=== PATIENT | female | born 1990 | race Caucasian/White ===

== ENCOUNTER 2016-12-09 07:25 | Emergency (ER) | payer MEDICAID, OTHER ==
--- NOTE | 2016-12-09 07:58 | ER Document Report ---
ED GI/ - General Mode of Arrival: Ambulatory Information source: Patient TRAVEL OUTSIDE OF THE U.S. IN LAST 30 DAYS: No - HPI Patient complains to provider of: Pelvic pain, - 10 weeks, Vaginal bleeding Onset: Other - Refer to HPI notes Vaginal bleeding (Compared to normal period): Bright red. denies: Passing clots Menstrual period history: : 3 Para: 2 Abortions: 0 Similar symptoms previously: No Recently seen / treated by doctor: Yes <ANDREW URIARTE - Last Filed: 12/09/16 08:23> <IBRAHIMA SUMMERS - Last Filed: 12/09/16 11:26> - General Chief Complaint: Vaginal Bleeding Stated Complaint: VAGINAL BLEEDING/10 WEEKS Time Seen by Provider: 12/09/16 07:45 Notes: Patient is a 26-year-old female presenting to the emergency department for vaginal bleeding. Patient is 10 weeks and states that the bleeding started when she woke up at 6:00 this morning. Patient states it was bright red blood with no clots. Patient also complains of some pelvic cramping last night and states she has more of an achy feeling to that area this morning with no cramping. Patient states that [email or web address]. Patient's blood type is A-; patient states she has not received any rhogam shots yet. Patient has a history of hypothyroidism and is taking synthroid. Patient has a history of . Patient has no known drug allergies. (ANDREW URIARTE) - Related Data Allergies/Adverse Reactions: No Known Allergies Allergy (Verified 12/09/16 07:33) Past Medical History - General Information source: Patient - Social History Smoking Status: Never Smoker Cigarette use (# per day): No Chew tobacco use (# tins/day): No Frequency of alcohol use: None Drug Abuse: None Family History: None Patient has suicidal ideation: No Patient has homicidal ideation: No Endocrine Medical History: Reports: Hx Hypothyroidism Psychiatric Medical History: Reports: Hx Bipolar Disorder Surgical Hx: Negative - Immunizations Immunizations up to date: Yes Hx Diphtheria, Pertussis, Tetanus Vaccination: Yes - unknown <ANDREW URIARTE - Last Filed: 12/09/16 08:23> Review of Systems - Review of Systems Constitutional: No symptoms reported EENT: No symptoms reported Cardiovascular: No symptoms reported Respiratory: No symptoms reported Gastrointestinal: See HPI Genitourinary: No symptoms reported Female Genitourinary: See HPI, , Vaginal bleeding Musculoskeletal: No symptoms reported Skin: No symptoms reported Hematologic/Lymphatic: No symptoms reported Neurological/Psychological: No symptoms reported -: Yes All other systems reviewed and negative <ANDREW URIARTE - Last Filed: 12/09/16 08:23> Physical Exam - Vital signs Interpretation: Normal - General General appearance: Appears well, Alert In distress: Mild - HEENT Head: Normocephalic, Atraumatic Eyes: Normal Pupils: PERRL Mucous membranes: Moist - Respiratory Respiratory status: No respiratory distress Chest status: Nontender Breath sounds: Normal Chest palpation: Normal - Cardiovascular Rhythm: Regular Heart sounds: Normal auscultation Murmur: No - Abdominal Inspection: Gravid female Distension: No distension Bowel sounds: Normal Tenderness: Nontender Organomegaly: No organomegaly - Back Back: Normal, Nontender - Extremities General upper extremity: Normal inspection, Normal ROM, Normal strength General lower extremity: Normal inspection, Normal ROM, Normal strength - Neurological Neuro grossly intact: Yes Cognition: Normal Orientation: AAOx4 [place] Coma Scale Eye Opening: Spontaneous Tami Coma Scale Verbal: Oriented [place] Coma Scale Motor: Obeys Commands [place] Coma Scale Total: 15 Speech: Normal - Psychological Associated symptoms: Normal affect, Normal mood - Skin Skin Temperature: Warm Skin Moisture: Dry <KIMSTEPHYANDREW - Last Filed: 12/09/16 08:23> <IBRAHIMA SUMMERS - Last Filed: 12/09/16 11:26> - Vital signs Vitals: Temp Pulse Resp BP Pulse Ox 97.5 F 70 16 118/57 L 99 12/09/16 07:30 12/09/16 07:30 12/09/16 07:30 12/09/16 07:30 12/09/16 07:30 Course - Laboratory Result Diagrams: 12/09/16 08:45 <IBRAHIMA SUMMERS - Last Filed: 12/09/16 11:26> - Vital Signs Vital signs: Temp Pulse Resp BP Pulse Ox 97.8 F 60 16 109/67 100 12/09/16 11:18 12/09/16 11:18 12/09/16 11:18 12/09/16 11:18 12/09/16 11:18 - Laboratory Laboratory results interpreted by me: 12/09/16 09:19 Urine Blood LARGE H Ur Leukocyte Esterase TRACE H Discharge <ANDREW URIARTE - Last Filed: 12/09/16 08:23> <IBRAHIMA SUMMERS - Last Filed: 12/09/16 11:26> - Discharge Clinical Impression: Subchorionic hemorrhage in first trimester, Need for rhogam due to Rh negative mother Condition: Stable Disposition: HOME, SELF-CARE Additional Instructions: Bleeding During Early : You have been evaluated for passing blood while . While we take this symptom very seriously, most women with your degree of bleeding will go on to have a perfectly normal baby. At this time, there is no indication that a miscarriage will occur. (A miscarriage occurs when the fetus is abnormal. There is no medicine or treatment to prevent it.) A more serious cause of bleeding is tubal . An ultrasound can show whether the is in the uterus or in the tube. Sometimes in early , no fetus is seen. In this case, careful follow-up, including repeat blood tests and repeat ultrasound, is necessary. You should rest in bed until the symptoms have resolved. Do not douche or have sex for at least a week, or until OK'd by the doctor. Don't use tampons. Call the doctor or return for re-examination if there is an increase in bleeding or cramping, extreme weakness, fainting, new abdominal pain, fever, or passage of tissue. FOLLOW UP WITH YOUR OB-REEL OPERATOR DOCTOR TOMORROW FOR RECHECK. RETURN TO THE EMERGENCY ROOM IF ANY NEW OR WORSENING SYMPTOMS. Forms: Release from PE and Sports Referrals: [facility] [Provider Group] - 12/10/16 Scribe Attestation: 12/09/16 10:51 I personally performed the services described in the documentation, reviewed and edited the documentation which was dictated to the scribe in my presence, and it accurately records my words and actions. (IBRAHIMA SUMMERS) Scribe Documentation - Scribe Written by Noy:: Noy Thompson, 12/09/16 8:22 acting as scribe for :: Dewey <ANDREW URIARTE - Last Filed: 12/09/16 08:23>
[2016-12-09 09:02] LABS: ABSOLUTE EOSINOPHILS # (AUTO) 0.1 10^3/uL (0.0-0.6); ABSOLUTE LYMPHOCYTES (AUTO) 1.6 10^3/uL (0.5-4.7); ABSOLUTE MONOCYTES (AUTO) 0.4 10^3/uL (0.1-1.4); ABSOLUTE NEUT (AUTO) 5.5 10^3/uL (1.7-8.2); BASOPHILS % (AUTO) 0.3 % (0-2); EOSINOPHILS % (AUTO) 0.9 % (0-6); HEMATOCRIT 36.6 % (36.0-47.0); HEMOGLOBIN 12.5 g/dL (12.0-15.5); HGB HCT DIFFERENCE 0.9; LYMPHOCYTES % (AUTO) 21.2 % (13-45); MEAN CORPUSCULAR HEMOGLOBIN 31.2 pg (27.0-33.4); MEAN CORPUSCULAR HGB CONC 34.1 g/dL (32.0-36.0); MEAN CORPUSCULAR VOLUME 91 fl (80-97); MONOCYTES % (AUTO) 5.6 % (3-13); RED BLOOD COUNT 4.01 10^6/uL (3.72-5.28); RED CELL DISTRIBUTION WIDTH 12.5 % (11.5-14.0); WHITE BLOOD COUNT 7.6 10^3/uL (4.0-10.5)
[2016-12-09 09:44] LABS: APPEARANCE,URINE SLIGHTLY-CLOUDY; BILIRUBIN,URINE NEGATIVE (NEGATIVE); GLUCOSE, URINE NEGATIVE (NEGATIVE); KETONES,URINE NEGATIVE (NEGATIVE); LEUKOCYTE ESTERASE,URINE TRACE (NEGATIVE); NITRITE,URINE NEGATIVE (NEGATIVE); PROTEIN,URINE NEGATIVE (NEGATIVE); URINE SPECIFIC GRAVITY 1.004; UROBILINOGEN,URINE NEGATIVE mg/dL (<2.0)
--- NOTE | 2016-12-09 10:34 | RADIOLOGY REPORT (SQ) ---
EXAM DESCRIPTION: U/S OB TRANSVAGINAL W/O DOP COMPLETED DATE/TIME: 12/09/2016 10:16 am REASON FOR STUDY: 10wks, BRB vag bleeding w/ cramps COMPARISON: No previous this TECHNIQUE: Endovaginal static and realtime grayscale images acquired of the pelvis. Additional selec eloy spectral and color Doppler images recorded. All images stored on PACs. bHCG: Not available LIMITATIONS: None. FINDINGS: FETUS: Living intrauterine . EGA: 10 weeks 2 days MOY: 07/05/2017 FHR: 175 beats per minute. SUBCHORIONIC BLEED: Yes SIZE OF BLEED: 2.6 x 0.6 cm subchorionic hemorrhage along the lower uterine segment. Cervix internal os is closed. UTERUS: No masses. No anomalies. Uterus is 12.6 x 8 x 7 cm in size. CERVICAL LENGTH: 3 cm Closed. RIGHT ADNEXA: Normal ovary with normal vascular flow. Right ovary 3.3 x 1.6 x 1.9 cm No adnexal free fluid. No adnexal masses. LEFT ADNEXA: Normal ovary with normal vascular flow. Left ovary 3.9 x 2.2 x 1.9 cm in size. No adnexal free fluid. No adnexal masses. FREE FLUID: None. OTHER: No other significant finding. IMPRESSION: LIVING INTRAUTERINE . EGA 10 weeks 2 days Subchorionic hemorrhage present. Trimester of : First - 0 to 13 weeks. TECHNICAL DOCUMENTATION: JOB ID: [id number] [place] [employer]- All Rights Reserved
[2016-12-09 11:19] VITALS: BP 109/67
[2016-12-09] MEDS ORDERED: LIDOCAINE 1% INJ-PF (10 MG/ML) 30 ML SDV ONE (12:46)
== END 2016-12-09 11:28 | disposition home or self-care (01) ==
LOC: ER 07:25
DX: O20.8 Other hemorrhage in early pregnancy (principal); O36.0910 Maternal care for other rhesus isoimmunization, first trimester, not applicable or unspecified; O99.281 Endocrine, nutritional and metabolic diseases complicating pregnancy, first trimester; E03.9 Hypothyroidism, unspecified; Z79.899 Other long term (current) drug therapy; Z3A.10 10 weeks gestation of pregnancy
CPT/HCPCS: 99284; 96372; 86900; 86901; 36415; 86850; 85025; 81001; 76817; J2790; J3490

== ENCOUNTER 2016-12-21 14:18 | Emergency (ER) | payer MEDICAID ==
--- NOTE | 2016-12-21 14:37 | ER Document Report ---
ED Medical Screen (RME) - General Chief Complaint: Vag Bleeding, +preg <12wks Stated Complaint: VAGINAL BLEEDING Time Seen by Provider: 12/21/16 14:34 Notes: Pt is 12 weeks presents with passing brown clots yesterday and now bright red blood this morning. She was in the emergency room 2 weeks ago and diagnosed with a subchorionic bleed that was causing her vaginal bleeding. Patient denies feeling lightheaded, urinary symptoms, abdominal pain, flank pain , diarrhea or constipation. PE: RRR. NAD. Soft, non-tender abdomen. I have greeted and performed a rapid initial assessment of this patient. A comprehensive ED assessment and evaluation of the patient, analysis of test results and completion of the medical decision making process will be conducted by additional ED providers. TRAVEL OUTSIDE OF THE U.S. IN LAST 30 DAYS: No - Related Data Allergies/Adverse Reactions: No Known Allergies Allergy (Verified 12/09/16 07:33) Past Medical History Endocrine Medical History: Reports: Hx Hypothyroidism Renal/ Medical History: Denies: Hx Peritoneal Dialysis Psychiatric Medical History: Reports: Hx Bipolar Disorder - Immunizations Immunizations up to date: Yes Hx Diphtheria, Pertussis, Tetanus Vaccination: Yes - unknown Physical Exam - Vital signs Vitals: Temp Pulse Resp BP Pulse Ox 98 F 84 18 131/74 H 98 12/21/16 14:12/21/16 14:12/21/16 14:23 12/21/16 14:23 12/21/16 14:23 Course - Vital Signs Vital signs: Temp Pulse Resp BP Pulse Ox 98 F 84 18 131/74 H 98 12/21/16 14:23 12/21/16 14:23 12/21/16 14:23 12/21/16 14:23 12/21/16 14:23
[2016-12-21 14:54] LABS: APPEARANCE,URINE SLIGHTLY-CLOUDY; BILIRUBIN,URINE NEGATIVE (NEGATIVE); GLUCOSE, URINE NEGATIVE (NEGATIVE); KETONES,URINE NEGATIVE (NEGATIVE); LEUKOCYTE ESTERASE,URINE LARGE (NEGATIVE); NITRITE,URINE NEGATIVE (NEGATIVE); PROTEIN,URINE NEGATIVE (NEGATIVE); URINE SPECIFIC GRAVITY 1.003; UROBILINOGEN,URINE NEGATIVE mg/dL (<2.0)
--- NOTE | 2016-12-21 15:14 | ER Document Report ---
HPI - HPI Patient complains to provider of: vag bleeding Onset: Yesterday Onset/Duration: Better Quality of pain: Cramping Pain Level: 2 Context: Patient states that she was evaluated in the emergency department for vaginal bleeding 2 weeks ago and was diagnosed with a subchorionic bleed. Patient states that the bleeding had stopped and then yesterday she noticed a brown blood clot in the toilet and then started to have bright red bleeding this morning. Patient states that the bleeding has since eased up and she is only using a panty liner. Patient states that she has had urinary frequency and pressure with voiding although denies pain with urination. Patient denies any fever or recent illness. Patient has had care and denies any concerns about sexually transmitted infection. Associated Symptoms: Other - Vaginal bleeding. denies: Fever Exacerbated by: Denies Relieved by: Denies Similar symptoms previously: Yes Recently seen / treated by doctor: Yes - ROS ROS below otherwise negative: Yes Systems Reviewed and Negative: Yes All other systems reviewed and negative - CONSTITUTIONAL Constitutional: DENIES: Fever, Chills - NEURO Neurology: DENIES: Weakness, Dizzinesss / Vertigo - CARDIOVASCULAR Cardiovascular: DENIES: Chest pain - GASTROINTESTINAL Gastrointestinal: REPORTS: Abdominal Pain - pelvic cramping. DENIES: Nausea, Patient vomiting - REPRODUCTIVE LMP: 12 weeks Reproductive: REPORTS: : - MUSCULOSKELETAL Musculoskeletal: DENIES: Back Pain - DERM Skin Color: Normal Skin Problems: None Past Medical History - General Information source: Patient - Social History Smoking Status: Unknown if Ever Smoked Frequency of alcohol use: None Drug Abuse: None Occupation: none Lives with: Family Family History: None Patient has suicidal ideation: No Patient has homicidal ideation: No Endocrine Medical History: Reports: Hx Hypothyroidism Renal/ Medical History: Denies: Hx Peritoneal Dialysis Psychiatric Medical History: Reports: Hx Bipolar Disorder Surgical Hx: Negative - Immunizations Immunizations up to date: Yes Hx Diphtheria, Pertussis, Tetanus Vaccination: Yes - unknown Vertical Provider Document - CONSTITUTIONAL Agree With Documented VS: Yes Exam Limitations: No Limitations General Appearance: WD/WN, No Apparent Distress - INFECTION CONTROL TRAVEL OUTSIDE OF THE [place] IN LAST 30 DAYS: No - HEENT HEENT: Atraumatic, Normocephalic - NECK Neck: Normal Inspection, Supple - RESPIRATORY Respiratory: Breath Sounds Normal, No Respiratory Distress, Chest Non-Tender O2 Sat by Pulse Oximetry: 98 - CARDIOVASCULAR Cardiovascular: Regular Rate, Regular Rhythm, No Murmur - GI/ABDOMEN Gastrointestinal: Abdomen Soft, Abdomen Tender - lower pelvic, No Organomegaly. negative: Abdominal Guarding - BACK Back: Normal Inspection. negative: CVA Tenderness-Right, CVA Tenderness-Left - MUSCULOSKELETAL/EXTREMETIES Musculoskeletal/Extremeties: IVONNE MINOR - NEURO Level of Consciousness: Awake, Alert, Appropriate Motor/Sensory: No Motor Deficit - DERM Integumentary: Warm, Dry, No Rash Course - Re-evaluation Re-evalutation: 12/21/16 16:[address] Fernandez regarding patient presentation and ultrasound report. Agrees with discharge plan of care. Advises giving good return precautions and having to follow-up with her [employer]. - Vital Signs Vital signs: Temp Pulse Resp BP Pulse Ox 98 F 84 18 131/74 H 98 12/21/16 14:23 12/21/16 14:23 12/21/16 14:23 12/21/16 14:23 12/21/16 14:23 - Laboratory Result Diagrams: 12/21/16 15:20 Laboratory results interpreted by me: 12/21/16 14:40 Urine Blood LARGE H Ur Leukocyte Esterase LARGE H 12/21/16 16:10 Labs- Entire Visit 12/21/16 12/21/16 14:40 15:20 WBC 10.2 RBC 4.15 Hgb 13.4 Hct 37.6 MCV 90 MCH 32.4 MCHC 35.8 RDW 12.3 Plt Count 254 Seg Neutrophils % 73.8 Lymphocytes % 20.8 Monocytes % 4.4 Eosinophils % 0.8 Basophils % 0.2 Absolute Neutrophils 7.5 Absolute Lymphocytes 2.1 Absolute Monocytes 0.4 Absolute Eosinophils 0.1 Absolute Basophils 0.0 Urine Color YELLOW Urine Appearance SLIGHTLY-CLOUDY Urine pH 7.0 Ur Specific [place] 1.003 Urine Protein NEGATIVE Urine Glucose (UA) NEGATIVE Urine Ketones NEGATIVE Urine Blood LARGE H Urine Nitrite NEGATIVE Urine Bilirubin NEGATIVE Urine Urobilinogen NEGATIVE Ur Leukocyte Esterase LARGE H Urine WBC (Auto) 4 Urine RBC (Auto) 3 Urine Bacteria (Auto) TRACE Squamous Epi Cells Auto 4 Urine Ascorbic Acid NEGATIVE 12/21/16 16:10 reviewed patient's laboratory tests from prior ER visit 12/21/16 16:19 - Diagnostic Test Radiology reviewed: Reports reviewed Discharge - Discharge Clinical Impression: Vagina bleeding Placenta previa Qualifiers: Trimester: second trimester Qualified Code(s): O44.02 - Complete placenta previa NOS or without hemorrhage, second trimester UTI (urinary tract infection) Qualifiers: Urinary tract infection type: site unspecified Hematuria presence: with hematuria Qualified Code(s): N39.0 - Urinary tract infection, site not specified Condition: Stable Disposition: HOME, SELF-CARE Instructions: Urinary Tract Infection ([facility]), Nitrofurantoin ([facility]) Additional Instructions: Return immediately for any new or worsening symptoms, increase in pain, bleeding , feeling lightheaded, dizzy or any other concerning symptoms Followup with your [employer] care provider, call tomorrow to make a followup appointment Pelvic rest, nothing in the vagina until cleared by your mud analysis operator Prescriptions: Nitrofurantoin/Nitrofuran Mac [Macrobid 100 mg Capsule] 100 mg PO BID #10 capsule Forms: Return to School, Release from PE and Sports Referrals: DOREEN SKAGGS MD [Primary Care Provider] - Follow up tomorrow
[2016-12-21 15:30] LABS: ABSOLUTE EOSINOPHILS # (AUTO) 0.1 10^3/uL (0.0-0.6); ABSOLUTE LYMPHOCYTES (AUTO) 2.1 10^3/uL (0.5-4.7); ABSOLUTE MONOCYTES (AUTO) 0.4 10^3/uL (0.1-1.4); ABSOLUTE NEUT (AUTO) 7.5 10^3/uL (1.7-8.2); BASOPHILS % (AUTO) 0.2 % (0-2); EOSINOPHILS % (AUTO) 0.8 % (0-6); HEMATOCRIT 37.6 % (36.0-47.0); HEMOGLOBIN 13.4 g/dL (12.0-15.5); HGB HCT DIFFERENCE 2.6; LYMPHOCYTES % (AUTO) 20.8 % (13-45); MEAN CORPUSCULAR HEMOGLOBIN 32.4 pg (27.0-33.4); MEAN CORPUSCULAR HGB CONC 35.8 g/dL (32.0-36.0); MEAN CORPUSCULAR VOLUME 90 fl (80-97); MONOCYTES % (AUTO) 4.4 % (3-13); RED BLOOD COUNT 4.15 10^6/uL (3.72-5.28); RED CELL DISTRIBUTION WIDTH 12.3 % (11.5-14.0); SEGMENTED NEUTROPHILS % (AUTO) 73.8 % (42-78); WHITE BLOOD COUNT 10.2 10^3/uL (4.0-10.5)
--- NOTE | 2016-12-21 15:34 | RADIOLOGY REPORT (SQ) ---
EXAM DESCRIPTION: U/S OB TRANSVAGINAL W/O DOP COMPLETED DATE/TIME: 12/21/2016 3:19 pm REASON FOR STUDY: vaginal bleeding COMPARISON: 12/09/2016. TECHNIQUE: Transvaginal static and realtime grayscale images acquired of the pelvis. Additional bernardo cted spectral and color Doppler images recorded. All images stored on PACs. bHCG: Not provided. LIMITATIONS: None. FINDINGS: FETUS: EGA: 12 week 1 day MOY: 07/04/2017 EFW: Not calculated. FHR: 165 beats per minute. ESTHER: Not calculated, grossly appropriate fluid. PLACENTA: Anterior forming placenta covers the cervical os. CERVICAL LENGTH: 5.2 cm. Closed. UTERUS: No masses. RIGHT ADNEXA: Not seen. No adnexal free fluid. No adnexal masses. LEFT ADNEXA: Not seen. No adnexal free fluid. No adnexal masses. FREE FLUID: None. OTHER: No other significant finding. IMPRESSION: Living IUP. Mild placenta previa. ESTIMATED GESTATIONAL AGE:12 week 1 day. Trimester of : First trimester - 0 to 13 weeks. TECHNICAL DOCUMENTATION: JOB ID: [id number] [employer]- All Rights Reserved
[2016-12-21] MEDS ORDERED: NITROFURANTOIN MONOHYD/M-CRYST 100 MG CAPSULE PO ONE (16:10)
[2016-12-21 16:30] VITALS: BP 116/73
== END 2016-12-21 16:24 | disposition home or self-care (01) ==
LOC: ER 14:18
DX: O44.12 Complete placenta previa with hemorrhage, second trimester (principal); O23.42 Unspecified infection of urinary tract in pregnancy, second trimester; O26.892 Other specified pregnancy related conditions, second trimester; R10.2 Pelvic and perineal pain; Z3A.00 Weeks of gestation of pregnancy not specified
CPT/HCPCS: 99284; 36415; 87086; 85025; 81001; 76817; J3490; J8499

== ENCOUNTER 2017-06-30 04:52 | Inpatient (IN) | payer MEDICAID ==
[2017-06-29 09:29] LABS: APPEARANCE,URINE CLOUDY; BILIRUBIN,URINE NEGATIVE (NEGATIVE); CALCIUM OXALATE CRYSTALS,URINE MODERATE /HPF; COLOR,URINE YELLOW; GLUCOSE, URINE NEGATIVE (NEGATIVE); KETONES,URINE NEGATIVE (NEGATIVE); LEUKOCYTE ESTERASE,URINE MODERATE (NEGATIVE); NITRITE,URINE NEGATIVE (NEGATIVE); PROTEIN,URINE NEGATIVE (NEGATIVE); URINE SPECIFIC GRAVITY 1.024; UROBILINOGEN,URINE NEGATIVE mg/dL (<2.0)
[2017-06-29 09:32] LABS: ABSOLUTE EOSINOPHILS # (AUTO) 0.1 10^3/uL (0.0-0.6); ABSOLUTE LYMPHOCYTES (AUTO) 1.6 10^3/uL (0.5-4.7); ABSOLUTE MONOCYTES (AUTO) 0.6 10^3/uL (0.1-1.4); ABSOLUTE NEUT (AUTO) 7.2 10^3/uL (1.7-8.2); BASOPHILS % (AUTO) 0.3 % (0-2); EOSINOPHILS % (AUTO) 0.9 % (0-6); HEMATOCRIT 38.7 % (36.0-47.0); HEMOGLOBIN 13.6 g/dL (12.0-15.5); LYMPHOCYTES % (AUTO) 16.6 % (13-45); MEAN CORPUSCULAR HGB CONC 35.2 g/dL (32.0-36.0); MEAN CORPUSCULAR VOLUME 88 fl (80-97); MONOCYTES % (AUTO) 6.6 % (3-13); PLATELET COUNT 251 10^3/uL (150-450); RED CELL DISTRIBUTION WIDTH 13.9 % (11.5-14.0); SEGMENTED NEUTROPHILS % (AUTO) 75.6 % (42-78); TOTAL CELLS COUNTED % (AUTO) 100 %; WHITE BLOOD COUNT 9.5 10^3/uL (4.0-10.5)
[2017-06-29 09:43] LABS: URINE AMPHETAMINES SCREEN NEGATIVE; URINE BARBITURATES SCREEN NEGATIVE; URINE BENZODIAZEPINES SCREEN NEGATIVE; URINE COCAINE SCREEN NEGATIVE; URINE MARIJUANA (THC) SCREEN NEGATIVE; URINE METHADONE SCREEN NEGATIVE; URINE PHENCYCLIDINE SCREEN NEGATIVE
[2017-06-30] MEDS ORDERED: CEFAZOLIN 1 GM/D5W RTU 1 GM/50 ML RTUPB IV PRN (05:00)
[2017-06-30] MEDS ORDERED: LACTATED RINGERS 1000 ML IV PRN (05:00)
[2017-06-30] MEDS ORDERED: CEFAZOLIN SODIUM 1 GM in DEXTROSE 5%-WATER 50 ML IV PRN (05:00)
[2017-06-30] MEDS ORDERED: AZITHROMYCIN 500 MG in DEXTROSE 5%-WATER 250 ML IV PRN (05:00)
[2017-06-30] MEDS ORDERED: RINGERS SOLUTION,LACTATED 2,000 ML IV PRN (05:00)
[2017-06-30] MEDS ORDERED: FENTANYL CITRATE INJ/PF 100 MCG/2 ML AMPUL ONE ×2 (07:20→09:31)
[2017-06-30] MEDS ORDERED: MIDAZOLAM 2 MG/2 ML INJ ONE (07:20)
[2017-06-30] MEDS ORDERED: OXYTOCIN 10 UNIT/ML VIAL ONE (07:20)
[2017-06-30] MEDS ORDERED: EPHEDRINE SULFATE INJ 50 MG/1 ML AMPULE ONE (07:20)
[2017-06-30] MEDS ORDERED: ONDANSETRON HCL INJ/PF 4 MG/2 ML SDV ONE (07:21)
[2017-06-30] MEDS ORDERED: ACETAMINOPHEN 100 ML IV ONE (07:21)
[2017-06-30] MEDS ORDERED: MORPHINE SULFATE 10 MG/ML INJ IV PRN (08:08)
[2017-06-30] MEDS ORDERED: PROMETHAZINE HCL INJ 25 MG/1 ML VIAL IV PRN ×2 (08:08)
[2017-06-30] MEDS ORDERED: DIPHENHYDRAMINE HCL 50 MG/ML VIAL IV PRN (08:08)
[2017-06-30] MEDS ORDERED: FENTANYL CITRATE INJ/PF 100 MCG/2 ML AMPUL IV PRN ×2 (08:08)
[2017-06-30] MEDS ORDERED: OXYCODONE-ACETAMINOPHEN 5-325 MG TABLET PO PRN ×3 (08:08→12:30)
[2017-06-30] MEDS ORDERED: MEPERIDINE HCL/PF INJ 25 MG/1 ML DISP.SYRIN IV PRN (08:08)
--- NOTE | 2017-06-30 08:38 | OPERATIVE REPORT E ---
Operative Report NAME: VENANCIO VILLALOBOS : 1990 AGE: 27Y DATE OF SURGERY: 06/30/2017 ROOM: 228 PREOPERATIVE DIAGNOSIS: IUP at term with history of prior shoulder dystocia. PROCEDURE: Primary low transverse , delivery of viable female, Apgars of 8 and 9. SURGEON: Katrin WALTON M.D. ESTIMATED BLOOD LOSS: Less than 100 mL. TISSUE REMOVED OR ALTERED: Placenta. ANESTHESIA: Spinal. DESCRIPTION OF PROCEDURE: The patient was placed in the supine position and rolled on her right side, prepped and draped in the sterile fashion. The Pfannenstiel incision was made. The incision extended through the subcutaneous tissue with sharp dissection and fascia sharply divided. Rectus muscle bluntly and sharply divided and the parietal peritoneum where there was blunt dissection. Uterus nicked in the midline and had to go through the anterior placenta and the infant was then delivered through the uterine abdominal incision. The cord was clamped. Infant was passed from the table. The placenta was manually extracted. The uterus then closed in 2 layers, the first with running stitch of 0 Vicryl and the second a Lembert stitch imbricating the first layer. Two areas of bleeding were noted. These were controlled with figure of eight sutures of 0 Vicryl. Hemostasis was noted. Fascia closed with 0 Vicryl. Skin was closed with subcuticular absorbable raghav. The patient tolerated it well. Her urine remained clear throughout the procedure and she was taken to recovery room in good condition, infant to nursery in good condition. DICTATING PHYSICIAN: Katrin WALTON M.D. [id number] Y#: [id number] ID: [id number] JOB#: [id number] ACCT: [id number] cc:Katrin WALTON M.D. >
[2017-06-30] MEDS: FENTANYL CITRATE INJ/PF 100 MCG/2 ML AMPUL IV PRN ×2 (09:35→10:10)
[2017-06-30] MEDS ORDERED: MISOPROSTOL 0.2 MG TABLET ONE (10:05)
--- NOTE | 2017-06-30 10:14 | PDOC DELIVERY SUMMARY ---
Delivery Summary - Maternal Hx : III Hx # Term Pregnancies: 3 Hx # Pregnancies: 0 Hx Total # of Abortions (Sponateous & Elective): 1 MOY: 06/30/17 Gestational Age: 39 weeks Risk Factors: Pre-Eclampsia Time of Rupture: 07:52 Fluids: Clear - Delivery Presentation: Vertex Heart Rate Monitoring: Done Pre-Operatively Support Person Present: Yes - BABY'S FATHER AT HEAD OF BED Location: LD : Scheduled, Repeat, Primary Placenta: Within Normal Limits Nuchal Cord: No Delivery of Placenta Date: 06/30/17 Delivery of Placenta Time: 07:54 - Medications Type of Anesthesia:: Spinal - Infant Assess and Care Baby 1 Female Delivery of Infant Date: 06/30/17 Delivery of Time: 07:53 at 1 minute: 8 at 5 minutes: 9 Preprinted Number On Band: [id number] Skin to Skin: Yes Skin to Skin (Mins): 5 To Nursery At: 08:05 Mode of Transport: Bassinet Infant Delivery Weight: 3,390 Delivery Length: 20 in - Delivery Personnel Nursery RN: JOSEPH RODRÍGUEZ RN MD: HERMAN WALTON
[2017-06-30] MEDS: OXYCODONE-ACETAMINOPHEN 5-325 MG TABLET PO PRN ×2 (11:15→20:14)
[2017-06-30] MEDS ORDERED: OXYTOCIN/NORMAL SALINE 20 UNIT/1,000 ML RTUINJ INJ PRN (12:15)
[2017-06-30] MEDS ORDERED: DIPH/PERTUSS(ACELL)/TETANUS VAC/PF 0.5 ML SYR (>=10YO) IM PRN (12:30)
[2017-06-30] MEDS ORDERED: ACETAMINOPHEN 325 MG TABLET PO PRN (12:30)
[2017-06-30] MEDS ORDERED: RINGERS SOLUTION,LACTATED 1,000 ML IV SCH (12:30)
[2017-06-30] MEDS ORDERED: SIMETHICONE 80 MG TAB.CHEW PO PRN (12:30)
[2017-06-30] MEDS ORDERED: PROMETHAZINE HCL INJ 25 MG/1 ML VIAL IM PRN (12:30)
[2017-06-30] MEDS ORDERED: MEASLES,MUMPS&RUBELLA VACC/PF 0.5 ML VIAL SUBCUT PRN (12:30)
[2017-06-30] MEDS: HYDROMORPHONE HCL INJ/PF 2 MG/ML AMPULE IV PRN ×2 (15:27→23:21)
[2017-06-30] MEDS ORDERED: DEXTROSE 5%-LACTATED RINGERS 1,000 ML IV PRN (18:00)
[2017-06-30] MEDS: DOCUSATE SODIUM 100 MG CAPSULE PO SCH (18:17)
[2017-07-01] MEDS: OXYCODONE-ACETAMINOPHEN 5-325 MG TABLET PO PRN ×4 (03:37→23:53)
[2017-07-01 07:50] LABS: HEMATOCRIT 27.9 % (36.0-47.0); MEAN CORPUSCULAR HEMOGLOBIN 30.3 pg (27.0-33.4); MEAN CORPUSCULAR HGB CONC 34.1 g/dL (32.0-36.0); MEAN CORPUSCULAR VOLUME 89 fl (80-97); PLATELET COUNT 212 10^3/uL (150-450); RED BLOOD COUNT 3.14 10^6/uL (3.72-5.28); RED CELL DISTRIBUTION WIDTH 13.7 % (11.5-14.0); WHITE BLOOD COUNT 9.2 10^3/uL (4.0-10.5)
[2017-07-01 08:04] LABS: HEMOGLOBIN 9.5 g/dL (12.0-15.5)
--- NOTE | 2017-07-01 08:57 | PDOC PROGRESS REPORT ---
Subjective-OB Subjective: Post Delivery Day: 1 27 year old. Denies any needs at this time, states lochia is stable, pain well controlled, voiding without difficulty, tolerating diet, not yet passing gas. Physical Exam (OB) Vital Signs: Temp Pulse Resp BP Pulse Ox 98.0 F 90 15 110/58 L 100 07/01/17 08:10 07/01/17 08:10 07/01/17 08:10 07/01/17 08:10 07/01/17 08:10 Intake & Output 06/30/17 07/01/17 07/02/17 06:59 06:59 06:59 Intake Total 4540 Output Total 2400 Balance 2140 Weight 91.17 kg - Dressing Removed: No Incision: Dressing - Lochia Lochia Amount: Small 10-25 ml Lochia Color: Rubra/Red - Abdomen Description: Soft, Round Hernia Present: No Fundal Description: Firm, Midline Fundal Height: u/u - u/2 Objective-Diagnostic Laboratory: 07/01/17 07:17 07/01/17 07:17 WBC 9.2 RBC 3.14 L Hgb 9.5 L D Hct 27.9 L MCV 89 MCH 30.3 MCHC 34.1 RDW 13.7 Plt Count 212 Assessment and Plan(PN) - Assessment and Plan (1) S/P primary low transverse Is this a current diagnosis for this admission?: Yes Plan: routine post op care (2) Acute blood loss anemia Is this a current diagnosis for this admission?: Yes Plan: ferrous sulfate increase dietary iron (3) Placenta previa Qualifiers: Trimester: third trimester Qualified Code(s): O44.03 - Complete placenta previa NOS or without hemorrhage, third trimester Is this a current diagnosis for this admission?: Yes Plan: n/a - Time Spent with Patient Time with patient: Less than 15 minutes Critical Time spent with patient: Less than 15 minutes Medications reviewed and adjusted accordingly: Yes - Disposition Anticipated Discharge: Home Within: within 24 hours
[2017-07-01] MEDS: PRENATAL VITAMIN W DHA CAPSULE PO SCH (10:17)
[2017-07-01] MEDS: DOCUSATE SODIUM 100 MG CAPSULE PO SCH ×2 (10:17→18:19)
[2017-07-01] MEDS: IBUPROFEN 800 MG TABLET PO SCH (23:52)
[2017-07-02] MEDS: IBUPROFEN 800 MG TABLET PO SCH ×2 (05:42→11:04)
[2017-07-02] MEDS: PRENATAL VITAMIN W DHA CAPSULE PO SCH (09:14)
[2017-07-02] MEDS: DOCUSATE SODIUM 100 MG CAPSULE PO SCH (09:14)
[2017-07-02 10:23] VITALS: BP 130/68
--- NOTE | 2017-07-02 11:30 | PDOC DISCHARGE SUMMARY ---
Final Diagnosis Discharge Date: 07/02/17 - Final Diagnosis (1) S/P primary low transverse Is this a current diagnosis for this admission?: Yes (2) Acute blood loss anemia Is this a current diagnosis for this admission?: Yes (3) Placenta previa Is this a current diagnosis for this admission?: Yes Discharge Data - Discharge Medication Prescriptions: Oxycodone HCl/Acetaminophen [Percocet 5-325 mg Tablet] 2 tab PO Q4HP PRN #30 tablet PRN Reason: Docusate Sodium [Colace 100 mg Capsule] 100 mg PO BID #60 capsule Ferrous Sulfate 325 mg PO BID #60 tablet Ibuprofen [Motrin 800 mg Tablet] 800 mg PO Q6 #60 tablet Home Medications: Vits96/Iron Fum/Folic [ Tablet] 1 each PO DAILY #30 tablet 08/31 Levothyroxine Sodium [Synthroid] 50 mcg PO DAILY 06/29/17 Docusate Sodium [Colace 100 mg Capsule] 100 mg PO BID #60 capsule 07/02/17 Ferrous Sulfate 325 mg PO BID #60 tablet 07/02/17 Ibuprofen [Motrin 800 mg Tablet] 800 mg PO Q6 #60 tablet 07/02/17 Oxycodone HCl/Acetaminophen [Percocet 5-325 mg Tablet] 2 tab PO Q4HP PRN #30 tablet 07/02/17 Gestational Age: 39 Reason(s) for Admission: Other Admission Note: previa, pre-e Procedures: NST Intrapartum Procedure(s): : Low Cervical, Transverse - Data Baby 1 Female at 1 minute: 8 at 5 minutes: 9 Weight: 3390 kg Home with Mother: Yes Complications: No - Diagnosis Test Laboratory: Temp Pulse Resp BP Pulse Ox 97.8 F 84 18 130/68 H 99 07/02/17 10:19 07/02/17 10:19 07/02/17 10:19 07/02/17 10:07/02/17 10:06/29/17 06/29/17 07/01/17 09:00 09:05 07:17 RBC 4.40 3.14 L Hgb 13.6 9.5 L D Hct 38.7 27.9 L Urine Opiates Screen NEGATIVE - Discharge information/Instructions Discharge Activity: Activity As Tolerated, Balance Activity w/Rest, No Driving, No Lifting Over 10 Pounds, No Lifting/Push/Pulling, Pelvic Rest, No tub bath Discharge Diet: Regular Disposition: HOME, SELF-CARE Follow up with: [facility] in: 1, Weeks - incision check
== END 2017-07-02 13:37 | disposition home or self-care (01) | DRG 765 ==
LOC: 2S 04:52
PROVIDERS: ADMIT Obstetrics & Gynecology Gynecology; ATTEND Obstetrics & Gynecology Gynecology
PROC: 10D00Z1 Extraction of Products of Conception, Low, Open Approach (ICD-10-PCS; principal; 2017-06-30 07:45)
DX: O44.03 Complete placenta previa NOS or without hemorrhage, third trimester (principal); O36.0930 Maternal care for other rhesus isoimmunization, third trimester, not applicable or unspecified; D62 Acute posthemorrhagic anemia; O14.94 Unspecified pre-eclampsia, complicating childbirth; O99.284 Endocrine, nutritional and metabolic diseases complicating childbirth; E03.9 Hypothyroidism, unspecified; O99.344 Other mental disorders complicating childbirth; O99.52 Diseases of the respiratory system complicating childbirth; O90.81 Anemia of the puerperium; F31.9 Bipolar disorder, unspecified; J45.909 Unspecified asthma, uncomplicated; Z3A.39 39 weeks gestation of pregnancy; Z37.0 Single live birth
CPT/HCPCS: 1961; 36415; 59025; 80307; 81001; 85025; 85027; 86850; 86900; 86901; 94799; J0131; J0456; J0690; J1170; J2250; J2405; J2590; J3010; J3490; J7060; J7120